=== PATIENT | male | born 1985 | race Two or more races ===

== ENCOUNTER 2024-01-24 16:36 | Emergency (ER) | payer OTHER ==
[~2024-01-24] VITALS: Ht 175.3 cm; Wt 89.7 kg
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
[2024-01-24 18:02] VITALS: PULSE 107; RESP 18; O2SAT 97
[2024-01-24] MEDS: TETANUS-DIPTH-ACEL PERTUSSIS 0.5ML SYR Tdap IM ONE (18:05)
[2024-01-24] MEDS: CEPHALEXIN 250 MG CAP PO ONE (18:06)
--- NOTE | 2024-01-24 18:23 | [facility] ---
CLINICAL INDICATION: crush injury, fx TECHNIQUE: 3 radiographic views of the left hand were obtained. Comparison: None FINDINGS/IMPRESSION: Mildly displaced distal tuft fracture left index finger. No radiopaque foreign bodies. The visualized joint space is well maintained. The alignment is anatomical. There is no radiopaque foreign body.
[2024-01-24] MEDS ORDERED: NALO4SPR2 (18:27)
[2024-01-24] MEDS ORDERED: CEPH250C PO (18:27)
[2024-01-24] MEDS ORDERED: HYDR-4902 PO (18:27)
[2024-01-24 18:49] VITALS: BP 150/82; PULSE 98; RESP 17; TEMP 98.5; O2SAT 98
== END 2024-01-24 18:54 | disposition home or self-care (01) ==
LOC: ER 16:36
DX: S62.631A Displaced fracture of distal phalanx of left index finger, initial encounter for closed fracture (principal); W23.0XXA Caught, crushed, jammed, or pinched between moving objects, initial encounter; Y93.89 Activity, other specified; Y92.89 Other specified places as the place of occurrence of the external cause; Y99.8 Other external cause status
CPT/HCPCS: 12042; 29130; 73140; 90471; 90715